=== PATIENT | male | born 1995 | race Caucasian/White ===

== ENCOUNTER → 2025-03-05 | Day surgery (SDC) | payer BC ==
[~2025-03-05] MED LIST: ACETAMINOPHEN 1000 MG/100 ML 100 ML IV ONE; DEXAMETHASONE SOD PHOS INJ 4 MG/ML SDV ONE; FENTANYL CITRATE/PF 100MCG/2 ML INJ ONE; LEXAPRO5 MG PO; LIDOCAINE HCL (LTA) 4 ML SOLN ONE; LIDOCAINE HCL 2% LOCAL INJ 5 ML SDV VIAL INJ ONE; ONDANSETRON HCL INJ 2MG/ML 2ML 2 MG/ML VIAL ONE; PROPOFOL IV EMULSION 10 MG/ML 20 ML VIAL ONE; ROCURONIUM BROMIDE 1 ML IV ONE; SUGAMMADEX SODIUM 200 MG/2 ML VIAL IV ONE; TESTOSTERO200 MG/1 M; VITAMIN D31 ML
[2025-03-05] MEDS: LACTATED RINGER'S 1,000 ML ONE (06:56)
[2025-03-05 09:55] VITALS: BP 145/90; PULSE 71; RESP 18; O2SAT 100
== END | disposition home or self-care (01) ==
LOC: OR 05:38
PROVIDERS: ATTEND Otolaryngology Otolaryngology/Facial Plastic Surgery
DX: J34.2 Deviated nasal septum (principal); J31.0 Chronic rhinitis; J34.0 Abscess, furuncle and carbuncle of nose; E66.811 Obesity, class 1; F41.9 Anxiety disorder, unspecified; Z68.34 Body mass index [BMI] 34.0-34.9, adult; Z87.891 Personal history of nicotine dependence; Z79.899 Other long term (current) drug therapy
CPT/HCPCS: 30520; 88304; 88305; J0131; J1100; J2003; J2405; J2704; J3010; J7121; 88300